=== PATIENT | male | born 1995 | race Caucasian/White ===

== ENCOUNTER 2020-01-20 17:57 | Emergency (ER) | payer OTHER ==
[~2020-01-20] VITALS: Ht 180.3 cm; Wt 65.8 kg
[~2020-01-20 17:57] MED LIST: Bactrim 400-801 EACH PO; CEPH500 PO; DOCSEN PO; HYDACE5 PO; NO ROUTINE MEDS; Norco 5-325 Ta1 EACH PO; Roxicodone5 MG PO; Zofran Odt4 MG PO
[2020-01-20] MEDS ORDERED: Augmentin 875-1 EACH PO (19:21)
== END 2020-01-20 19:30 | disposition home or self-care (01) ==
LOC: ER 17:57
DX: K02.9 Dental caries, unspecified (principal); K04.7 Periapical abscess without sinus; F17.200 Nicotine dependence, unspecified, uncomplicated
CPT/HCPCS: 99282

== ENCOUNTER 2020-10-11 13:39 | Emergency (ER) | payer OTHER ==
[~2020-10-11] VITALS: Ht 180.3 cm; Wt 68.0 kg
[~2020-10-11 13:39] MED LIST changes: +Augmentin 875-1 EACH PO; +CARB10OTL BOTHEARS
== END 2020-10-11 16:04 | disposition home or self-care (01) ==
LOC: ER 13:39
DX: S51.812A Laceration without foreign body of left forearm, initial encounter (principal); H57.89 Other specified disorders of eye and adnexa; F17.210 Nicotine dependence, cigarettes, uncomplicated; Z23 Encounter for immunization; W27.0XXA Contact with workbench tool, initial encounter
CPT/HCPCS: 12002; 73090; 90471; 90714; 99283-25; A9270

== ENCOUNTER 2023-03-26 17:57 | Emergency (ER) | payer OTHER ==
[~2023-03-26] VITALS: Ht 177.8 cm; Wt 65.8 kg
[2023-03-26 18:05] VITALS: BP 158/97
[2023-03-26] MEDS ORDERED: CLIN150 PO (19:06)
== END 2023-03-26 19:30 | disposition home or self-care (01) ==
LOC: ER 17:57
DX: L03.311 Cellulitis of abdominal wall (principal); L03.116 Cellulitis of left lower limb; L03.115 Cellulitis of right lower limb; F17.210 Nicotine dependence, cigarettes, uncomplicated
CPT/HCPCS: 99282